=== PATIENT | male | born 1960 | race Caucasian/White ===

== ENCOUNTER 2017-05-19 20:00 | Inpatient (IN) | payer SELFPAY ==
[~2017-05-19] VITALS: Ht 177.8 cm; Wt 81.6 kg
[2017-05-19] MEDS ORDERED: IV NORMAL SALINE 1,000ML 1,000 ML IV ONE (20:15)
[2017-05-19] MEDS ORDERED: LORazepam 2 MG/ML VIAL IV ONE (20:45)
[2017-05-19 21:00] LABS: BASO % 1 % (0-3); EOS % 0 % (0-3); HEMATOCRIT 47.2 % (39.0-53.0); HEMOGLOBIN 16.2 g/dL (13.0-17.5); LYMPH # 1.5 x10^3/uL (1.0-4.8); LYMPH % 28 % (24-48); MEAN CORPUSCULAR HEMOGLOBIN 33 pg (25-35); MEAN CORPUSCULAR HGB CONC 34 g/dL (31-37); MEAN CORPUSCULAR VOLUME 97 fL (79-100); MONO # 0.7 x10^3/uL (0.0-1.1); MONO % 12 % (0-9); NEUT # 3.2 x10^3uL (1.8-7.7); NEUT % 59 % (31-73); PLATELET COUNT 111 x10^3/uL (140-400); RED BLOOD COUNT 4.89 x10^6/uL (4.30-5.70); RED CELL DISTRIBUTION WIDTH 13.9 % (11.5-14.5); WHITE BLOOD COUNT 5.4 x10^3/uL (4.0-11.0)
[2017-05-19 21:06] LABS: ALBUMIN 3.5 g/dL (3.4-5.0); ALBUMIN/GLOBULIN RATIO 0.7 (1.0-1.7); CALCIUM 8.9 mg/dL (8.5-10.1); CREATININE 0.9 mg/dL (0.7-1.3); POTASSIUM 3.4 mmol/L (3.5-5.1); TOTAL BILIRUBIN 0.6 mg/dL (0.2-1.0); TOTAL PROTEIN 8.2 g/dL (6.4-8.2)
[2017-05-19 21:25] LABS: ACETAMIN < 2.0 mcg/mL (10-30); ETHANOL 24 mg/dL (0-10); SALIC 4.2 mg/dL (2.8-20.0)
[2017-05-19] MEDS ORDERED: MVI, ADULT NO.4 WITH VIT K 10 ML, FOLIC ACID SYRINGE for ER 1 MG, THIAMINE 100 MG in IV... IV ONE ×4 (22:00)
[2017-05-19] MEDS ORDERED: POTASSIUM CL 20MEQ D5-0.9%NACL 1,000 ML IV ONE (22:00)
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
[2017-05-19 22:14] LABS: AMPHETAMINE/METHAMPHETAMINE NEG (NEG); BARBITURATES NEG (NEG); BENZODIAZEPINES NEG (NEG); CANNABINOIDS POS (NEG); COCAINE NEG (NEG); METHADONE NEG (NEG); OPIATES NEG (NEG); PHENCYCLIDINE NEG (NEG)
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
[2017-05-19 22:22] LABS: BILIRUBIN,URINE NEG (NEG); CLARITY,URINE HAZY; COLOR,URINE YELLOW; GLUCOSE,URINE NEG (NEG)
[2017-05-19 22:23] LABS: BACTERIA,URINE 0 /HPF (0-FEW); NITRITE,URINE NEG (NEG); SQUAMOUS EPITHELIAL CELL,UR FEW /LPF; UROBILINOGEN,URINE 1 mg/dL (0.2 mg/dL)
[2017-05-19 22:24] LABS: HYALINE CASTS, URINE MOD /HPF
[2017-05-19] MEDS ORDERED: ONDANSETRON PF 4 MG/2 ML VIAL. IV PRN (22:30)
[2017-05-19] MEDS ORDERED: LORazepam 2 MG/ML VIAL IV PRN ×2 (22:30)
[2017-05-19] MEDS ORDERED: cloNIDine HCL 0.1 MG TABLET PO PRN (22:30)
[2017-05-19 22:50] VITALS: BP 173/75
[2017-05-19 23:00] VITALS: BP 174/98
--- NOTE | 2017-05-19 23:08 | EKG ---
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
[2017-05-19] MEDS: POTASSIUM CL 20MEQ D5-0.45NACL 1,000 ML IV SCH (23:30)
[2017-05-20] VITALS (8 sets, daily range): BP systolic 145–163; BP diastolic 80–90
[2017-05-20 06:51] LABS: BASO # 0.1 x10^3/uL (0.0-0.2); BASO % 2 % (0-3); CALCIUM 8.5 mg/dL (8.5-10.1); CREATININE 0.7 mg/dL (0.7-1.3); EOS % 0 % (0-3); GFR 116.2; HEMATOCRIT 44.3 % (39.0-53.0); HEMOGLOBIN 15.3 g/dL (13.0-17.5); LYMPH # 1.1 x10^3/uL (1.0-4.8); LYMPH % 18 % (24-48); MEAN CORPUSCULAR HEMOGLOBIN 33 pg (25-35); MEAN CORPUSCULAR HGB CONC 35 g/dL (31-37); MEAN CORPUSCULAR VOLUME 95 fL (79-100); MONO # 0.7 x10^3/uL (0.0-1.1); MONO % 11 % (0-9); NEUT # 4.4 x10^3uL (1.8-7.7); NEUT % 69 % (31-73); PLATELET COUNT 99 x10^3/uL (140-400); POTASSIUM 3.5 mmol/L (3.5-5.1); RED BLOOD COUNT 4.67 x10^6/uL (4.30-5.70); RED CELL DISTRIBUTION WIDTH 13.7 % (11.5-14.5); WHITE BLOOD COUNT 6.4 x10^3/uL (4.0-11.0)
[2017-05-20] MEDS: POTASSIUM CL 20MEQ D5-0.45NACL 1,000 ML IV SCH (06:54)
[2017-05-20] MEDS ORDERED: MULTIVITAMIN with MINERAL TABLET. PO SCH (09:00)
[2017-05-20] MEDS ORDERED: THIAMINE 100 MG in IV NORMAL SALINE 50ML 50 ML IV SCH (09:00)
[2017-05-20] MEDS ORDERED: FOLIC ACID 1 MG TABLET PO SCH (09:00)
[2017-05-20] MEDS ORDERED: LISI10TA2 PO (10:34)
[2017-05-20] MEDS ORDERED: CHLO25CA9 PO (10:39)
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
== END 2017-05-20 11:10 | disposition short-term general hospital (02) | DRG 897 ==
LOC: ER 20:00 → ICU 22:23
PROVIDERS: ADMIT Family Medicine; ATTEND Family Medicine
DX: F10.239 Alcohol dependence with withdrawal, unspecified (principal); E87.2 Acidosis; G93.89 Other specified disorders of brain; E87.1 Hypo-osmolality and hyponatremia; W18.39XA Other fall on same level, initial encounter; E87.6 Hypokalemia; F12.90 Cannabis use, unspecified, uncomplicated; G31.9 Degenerative disease of nervous system, unspecified; G89.29 Other chronic pain; M25.78 Osteophyte, vertebrae; R56.9 Unspecified convulsions; S01.551A Open bite of lip, initial encounter; Z72.0 Tobacco use; M54.5 Low back pain; Y93.89 Activity, other specified; Y92.89 Other specified places as the place of occurrence of the external cause; Y99.8 Other external cause status
CPT/HCPCS: 36415; 70450; 72125; 80048; 80053; 80307; 81001; 82550; 83690; 83735; 84443; 84484; 85025; 87641; 93005; 96361; 96365; 96375; G0480; J2060; J7120; 99291-25; G0479; J7030

== ENCOUNTER 2020-02-04 09:51 | Emergency (ER) | payer SELFPAY ==
[~2020-02-04] VITALS: Ht 177.8 cm; Wt 73.0 kg
[~2020-02-04 09:51] MED LIST: CHLO25CA9 PO; LISI10TA2 PO
--- NOTE | 2020-02-04 09:58 | PHYS DOC ---
Past History Past Medical History: Alcoholism Past Surgical History: Appendectomy Alcohol Use: Heavy Drug Use: None Adult General HPI HPI Patient is a 59-year-old male who presents with generalized abdominal pain. This is an acute on chronic problem. Reports last 2 weeks of generalized abdominal pain. Nothing known makes better or worse. Pain diffuse, nonfocal without radiation anywhere else. He denies any fever, recent URI-like illness or COVID-19 contact, chest pain, shortness of breath, admits nausea, x1 episode of bloody emesis 2 weeks ago, has been constipated with last bowel movement approximately 3 days ago, no urinary symptoms. Patient has history of chronic alcohol abuse drinking 6 beers daily, unknown history of esophageal varices as he has never had an EGD. Has had x1 colonoscopy approximately 7 years ago for which several polyps of unknown origin were removed, denies any active blood in stool. He does not have a primary care physician, does not take any medications on a daily basis. Has history of open appendectomy otherwise no other GI surgeries Review of Systems Review of Systems Fourteen body systems of review of systems have been reviewed. See HPI for pertinent positives and negative responses, other chan all other systems are negative, non-pertinent or non-contributory Allergies Allergies Allergies Coded Allergies Type Severity Reaction Last Updated Verified No Known Drug Allergies 05/19/17 No Physical Exam Physical Exam Constitutional: Poor hygiene, no acute distress, non-toxic appearance. HENT: Normocephalic, atraumatic, bilateral external ears normal, oropharynx moist, no oral exudates, nose normal. Eyes: PERRLA, EOMI, conjunctiva normal, no discharge. Neck: Normal range of motion, no tenderness, supple, no stridor. Cardiovascular: Heart rate regular, sinus rhythm, no murmurs rubs or gallops Lungs & Thorax: Bilateral breath sounds clear to auscultation Abdomen: Bowel sounds normal, protuberant and distended, mild tenderness diffusely without guarding or rebound, no masses, no pulsatile masses, fluid wave present. Nonsurgical abdomen, no peritoneal signs. Large midline scar from prior open appendectomy Skin: Warm, dry, no erythema, no rash. Back: No tenderness, no CVA tenderness. Extremities: No tenderness, no cyanosis, no clubbing, ROM intact, no edema. Neurologic: Alert and oriented X 3, grossly normal motor & sensory function, no focal deficits noted. Psychologic: Affect normal, judgement normal, mood normal. Current Patient Data Vital Signs Vital Signs Date Time Temp Pulse Resp B/P (MAP) Pulse Ox O2 Delivery O2 Flow Rate FiO2 02/04/20 10:03 97.6 94 18 146/90 (108) 98 EKG EKG EKG ordered and interpreted by myself at 1158 hrs. as sinus rhythm at 90 bpm, no axis deviation, unremarkable intervals, no acute ischemic findings, no STEMI Radiology/Procedures Radiology/Procedures PROCEDURE: CT ABDOMEN PELVIS WO CONTRAST CT abdomen pelvis without contrast dated 06/06/2019. No comparison available. Clinical data indication: Diffuse abdominal pain. History of cirrhosis. TECHNIQUE: Contiguous axial imaging the M pelvis performed without the administration of IV or oral contrast. One or more of the following individualized dose reduction techniques were utilized for this examination: 1. Automated exposure control 2. Adjustment of the mA and/or kV according to patient size 3. Use of iterative reconstruction technique. FINDINGS: Limited images of lung bases are clear. Heart size within normal limits. No pleural or pericardial effusion. There is a moderate size hiatal hernia with wall thickening of the distal thoracic esophagus. Solid abdominal viscera not well evaluated in the absence of contrast material. No apparent attenuation abnormality of the liver or spleen. The spleen is normal in size. There are calcific stones within a collapsed gallbladder. No biliary ductal dilatation. Pancreas unremarkable. There are low-density lesions of the bilateral adrenal gland measuring 3.6 cm on the right and 2.3 cm on the left, Hounsfield values of -7 and -10, consistent with adrenal adenomas. Kidneys are symmetric in size and attenuation. No calcific renal or ureteral stone. There is diffuse dilation of small and large bowel. There is also possible mild generalized wall thickening of the colon. There is evidence of prior right colon resection. A masslike area of increased density in the central low pelvis appears to associated with the sigmoid colon and there is abrupt transition in colonic caliber at this level. This is best seen on axial images 92 through 102 coronal image 58. There is also some twisting of the mesenteric pedicle near this level with some tethering of small bowel loops into the region. There are a few borderline enlarged mesenteric lymph nodes. No significant retroperitoneal adenopathy. Urinary bladder is nondistended. No significant free fluid. The prostate gland is upper limits of normal in size. There is a small left inguinal hernia containing only fat. No pelvic adenopathy. Bone windows show no acute findings. Multilevel spondylosis. IMPRESSION: 1. The colon and small bowel are dilated to the level of the sigmoid colon, suggesting obstruction or partial obstruction. A masslike area of increased density at the sigmoid could represent an underlying neoplasm. There is also some twisting of the mesenteric pedicle at this region and a localized volvulus or internal hernia is another possibility. Colonoscopy would better evaluate. 2. There is mild wall thickening of the distal thoracic esophagus with moderate size hiatal hernia. Consider acute or chronic esophagitis. Underlying mass cannot be excluded. 3. Bilateral adrenal adenomas. Electronically signed by: Dean Gooden MD (02/04/2020 11:34 AM) [id number] Heart Score HEART Score for Chest Pain: HEART Score for Chest Pain Response (Comments) Value History Slighlty/Non-Suspicious 0 ECG Normal 0 Age >45 - < 65 1 Risk Factors 1 or 2 Risk Factors 1 Troponin < Normal Limit 0 Total 2 Risk Factors: Risk Factors: DM, Current or recent (<one month) smoker, HTN, HLP, family history of CAD, obesity. Risk Scores: Risk Factors: DM, Current or recent (<one month) smoker, HTN, HLP, family history of CAD, obesity. Course & Med Decision Making Course & Med Decision Making Ambulatory patient who appears in pain seen on arrival ABCs nonconcerning Comprehensive history and physical exam obtained, subsequent diagnostic work-up ordered ER course significant for likely diagnosis of small bowel obstruction. There is concern for underlying neoplasm. Patient has never had an EGD, last colonoscopy was greater than 5 years ago with removal of unknown polyps Patient is high risk for a poor prognosis if discharged home given he has no outpatient follow-up plans. I stressed to him need for hospital admission and he was agreeable I called Dr. Shipman, hospitalist at [facility] who accepted patient under his care I also called Dr. Adamson, surgeon at [facility] and discussed case. Joint decision to withhold NG tube at this time as patient has a nonsurgical abdomen and is not vomiting with unknown history of esophageal varices IV fluids and pain medications administered, all questions and concerns addressed prior to ER transport to [facility] in stable condition for continued medical and potential surgical care Dragon Disclaimer Dragon Disclaimer This electronic medical record was generated, in whole or in part, using a voice recognition dictation system. Departure Departure: Impression: Primary Impression: Small bowel obstruction Additional Impression: History of ETOH abuse Disposition: 02 DC/TRF OTHER SHORT TERM HOS ([facility]) Admitting Physician: Shelia Shipman Condition: STABLE Referrals: PATRICIA CHANEL DO (PCP) Problem Qualifiers LINDA MITCHELL DO Feb 04, 2020 09:58
--- NOTE | 2020-02-04 11:37 | RAD ---
CT abdomen pelvis without contrast dated 06/06/2019. No comparison available. Clinical data indication: Diffuse abdominal pain. History of cirrhosis. TECHNIQUE: Contiguous axial imaging the M pelvis performed without the administration of IV or oral contrast. One or more of the following individualized dose reduction techniques were utilized for this examination: 1. Automated exposure control 2. Adjustment of the mA and/or kV according to patient size 3. Use of iterative reconstruction technique. FINDINGS: Limited images of lung bases are clear. Heart size within normal limits. No pleural or pericardial effusion. There is a moderate size hiatal hernia with wall thickening of the distal thoracic esophagus. Solid abdominal viscera not well evaluated in the absence of contrast material. No apparent attenuation abnormality of the liver or spleen. The spleen is normal in size. There are calcific stones within a collapsed gallbladder. No biliary ductal dilatation. Pancreas unremarkable. There are low-density lesions of the bilateral adrenal gland measuring 3.6 cm on the right and 2.3 cm on the left, Hounsfield values of -7 and -10, consistent with adrenal adenomas. Kidneys are symmetric in size and attenuation. No calcific renal or ureteral stone. There is diffuse dilation of small and large bowel. There is also possible mild generalized wall thickening of the colon. There is evidence of prior right colon resection. A masslike area of increased density in the central low pelvis appears to associated with the sigmoid colon and there is abrupt transition in colonic caliber at this level. This is best seen on axial images 92 through 102 coronal image 58. There is also some twisting of the mesenteric pedicle near this level with some tethering of small bowel loops into the region. There are a few borderline enlarged mesenteric lymph nodes. No significant retroperitoneal adenopathy. Urinary bladder is nondistended. No significant free fluid. The prostate gland is upper limits of normal in size. There is a small left inguinal hernia containing only fat. No pelvic adenopathy. Bone windows show no acute findings. Multilevel spondylosis. IMPRESSION: 1. The colon and small bowel are dilated to the level of the sigmoid colon, suggesting obstruction or partial obstruction. A masslike area of increased density at the sigmoid could represent an underlying neoplasm. There is also some twisting of the mesenteric pedicle at this region and a localized volvulus or internal hernia is another possibility. Colonoscopy would better evaluate. 2. There is mild wall thickening of the distal thoracic esophagus with moderate size hiatal hernia. Consider acute or chronic esophagitis. Underlying mass cannot be excluded. 3. Bilateral adrenal adenomas. Electronically signed by: Dean Gooden MD (02/04/2020 11:34 AM) [id number]
[2020-02-04 11:42] LABS: BASO % 1 % (0-3); EOS % 0 % (0-3); HEMOGLOBIN 14.6 g/dL (13.0-17.5); LYMPH # 1.3 x10^3/uL (1.0-4.8); LYMPH % 17 % (24-48); MEAN CORPUSCULAR HEMOGLOBIN 33 pg (25-35); MEAN CORPUSCULAR HGB CONC 34 g/dL (31-37); MEAN CORPUSCULAR VOLUME 95 fL (79-100); MONO # 0.9 x10^3/uL (0.0-1.1); MONO % 12 % (0-9); NEUT # 5.5 x10^3uL (1.8-7.7); NEUT % 71 % (31-73); PLATELET COUNT 520 x10^3/uL (140-400); RED CELL DISTRIBUTION WIDTH 13.5 % (11.5-14.5); WHITE BLOOD COUNT 7.8 x10^3/uL (4.0-11.0)
[2020-02-04] MEDS ORDERED: POLYETHYLENE GLYCOL 3350 17 GM PACKET. PO SCH (12:00)
[2020-02-04] MEDS ORDERED: IV NORMAL SALINE 1,000ML 1,000 ML IV ONE (12:15)
[2020-02-04 12:21] LABS: ALBUMIN 2.4 g/dL (3.4-5.0); ALBUMIN/GLOBULIN RATIO 0.6 (1.0-1.7); CALCIUM 8.6 mg/dL (8.5-10.1); CREATININE 0.8 mg/dL (0.7-1.3); GFR 98.6; POTASSIUM 3.4 mmol/L (3.5-5.1); TOTAL BILIRUBIN 0.3 mg/dL (0.2-1.0); TOTAL PROTEIN 6.4 g/dL (6.4-8.2)
[2020-02-04 13:07] LABS: FECAL OB PT NEGATIVE (NEG)
[2020-02-04 13:14] LABS: BARBITURATES NEG (NEG); BENZODIAZEPINES NEG (NEG); CANNABINOIDS POS (NEG); COCAINE NEG (NEG); METHADONE NEG (NEG); OPIATES NEG (NEG); PHENCYCLIDINE NEG (NEG)
[2020-02-04 13:15] LABS: AMPHETAMINE/METHAMPHETAMINE NEG (NEG)
[2020-02-04 13:48] LABS: BILIRUBIN,URINE NEG (NEG); CLARITY,URINE CLOUDY; COLOR,URINE AMBER; GLUCOSE,URINE NEG (NEG); NITRITE,URINE POS (NEG)
[2020-02-04 13:49] LABS: BACTERIA,URINE MANY /HPF (0-FEW); SQUAMOUS EPITHELIAL CELL,UR FEW /LPF
--- NOTE | 2020-02-04 14:55 | EKG ---
[address] [address] Test Date: 2020-02-04 Test Time: 11:49:40 Pat Name: NAIDA SHAH Department: Room: Gender: M [employer] In[employer]: TASHA : 1960 Requested By: LINDA MITCHELL Order Number: [id number] Reading MD: Measurements Intervals [place] Rate: 90 P: 29 [place]: 132 QRS: 1 QRSD: 96 T: 63 QT: 372 QTc: 459 Interpretive Statements SINUS RHYTHM NORMAL ECG RI6.02 No previous ECG available for comparison
[2020-02-04 16:52] VITALS: BP 149/81
== END 2020-02-04 17:15 | disposition short-term general hospital (02) ==
LOC: ER 09:51
DX: K56.609 Unspecified intestinal obstruction, unspecified as to partial versus complete obstruction (principal); R10.84 Generalized abdominal pain; F10.10 Alcohol abuse, uncomplicated; Z90.89 Acquired absence of other organs
CPT/HCPCS: 36415; 74176; 80053; 80307; 81001; 82274; 82550; 83605; 83690; 84484; 85025; 85610; 85730; 86705; 86709; 86803; 87086; 87340; 93005; 96361; 96374; 96376; 99285; J3010; J7030; 96365